=== PATIENT | female | born 1950 | race Caucasian/White ===

== ENCOUNTER 2019-01-09 08:07 | Emergency (ER) | payer MEDICARE, MEDICAID ==
[2019-01-09 08:24] VITALS: BP 152/68
--- NOTE | 2019-01-09 08:51 | UC ---
UC General HPI - HPI Summary HPI Summary: RN notes - reviewed has yeast under breast, went to PCP yesterday, rx otc lamicil. now has dark [place] spots/ rash on trunk Reviewed with pt, agree with rn notes. PCP is not in the office today. no fever / sob / cough / GI - History of Current Complaint Chief Complaint: UCRash Stated Complaint: RASH Time Seen by Provider: 01/09/19 08:51 Hx Obtained From: Patient Pain Intensity: 3 - Allergy/Home Medications Allergies/Adverse Reactions: Allergies Allergy/AdvReac Type Severity Reaction Status Date / Time ciprofloxacin [From Cipro] Allergy Intermediate Rash Verified 01/09/19 08:24 Home Medications: Home Medications Lisinopril 5 mg PO DAILY WITH MEAL 01/09/19 [History Confirmed 01/09/19] PMH/Surg Hx/FS Hx/Imm Hx Previously Healthy: Yes - Surgical History Surgical History: None - Family History Known Family History: Positive: Non-Contributory - Social History Alcohol Use: None Substance Use Type: None Smoking Status (MU): Never Smoked Tobacco Review of Systems All Other Systems Reviewed And Are Negative: Yes Constitutional: Positive: Negative Skin: Positive: Rash - see hpi Eyes: Positive: Negative ENT: Positive: Negative Respiratory: Positive: Negative Cardiovascular: Positive: Negative Gastrointestinal: Positive: Negative Genitourinary: Positive: Negative Motor: Positive: Negative Neurovascular: Positive: Negative Musculoskeletal: Positive: Negative Neurological: Positive: Negative Psychological: Positive: Negative Is Patient Immunocompromised?: No Physical Exam Triage Information Reviewed: Yes Appearance: Well-Appearing, Well-Nourished Vital Signs: Initial Vital Signs Temp 97.8 F 01/09/19 08:18 Pulse 68 01/09/19 08:18 Resp 18 01/09/19 08:18 BP 152/68 01/09/19 08:18 Pulse Ox 100 01/09/19 08:18 Vital Signs Reviewed: Yes Eye Exam: Normal ENT Exam: Normal Neck exam: Normal Respiratory Exam: Normal Cardiovascular Exam: Normal Abdominal Exam: Normal Abdomen Description: Positive: Nontender Musculoskeletal Exam: Normal - gait steady Neurological Exam: Normal - grossly nonfocal Psychological Exam: Normal - conversing easily Skin Exam: Other - nondiaphoretic. + dermatitis intrigenous regions, c/w with fungal component. Also several raised darker brown areas ranging from flat to raised, different size / shape, mostly circumferential, many are dry. Nonfluctuant, noncellulitic. Located over abd and back. Course/Dx - Course Course Of Treatment: Reviewed coa / tx plan. Dermatitis - avoid astringents (including desitin), switch from lamisil otc to lotrisone. Consider additional possible viral component. Will check blood work. F/u PCP on Saturday and Dermatology 2 weeks. - Diagnoses Provider Diagnosis: Dermatitis Discharge ED - Sign-Out/Discharge Documenting (check all that apply): Patient Departure All imaging exams completed and their final reports reviewed: No Studies - Discharge Plan Condition: Stable Disposition: HOME Prescriptions: Clotrimazole/Betamethasone* [Lotrisone Cream*] 1 applic TOPICAL TID 7 Days #1 tube Patient Education Materials: Dermatitis (ED) Referrals: Grant Vines MD [Primary Care Provider] - Additional Instructions: Call Dr. Vines on Saturday to arrange follow up for next week. Seek medical attention for worse or new problems in the meantime. Be sure to follow up with your compensation analyst as scheduled in 2 weeks. Hydrate. Avoid astringents (ex avoid hydrogen peroxide, rubbing alcohol, witch andres, desitin) Ok to shower, pat dry, mild white soap. - Billing Disposition and Condition Condition: STABLE Disposition: Home
[2019-01-09 13:25] LABS: ABS Eosinophils 0.1 10^3/ul (0-0.6); ABS Lymphocytes 1.2 10^3/ul (1.0-4.8); ABS Monocytes 0.6 10^3/ul (0-0.8); ABS Neutrophils 4.2 10^3/ul (1.5-7.7); Eosinophil % 1.2 %; Hematocrit 39 % (35-47); Hemoglobin 13.1 g/dL (12.0-16.0); Mean Corpuscular HGB Conc 34 g/dL (31-36); Mean Corpuscular Hemoglobin 33 pg (27-31); Mean Corpuscular Volume 97 fL (80-97); Mean Platelet Volume 7.5 fL (7.4-10.4); Platelet Count 263 10^3/uL (150-450); Red Blood Count 3.98 10^6 /uL (3.70-4.87); Red Cell Distribution Width 13 % (10-15); White Blood Count 6.2 10^3/uL (3.5-10.8)
[2019-01-09 13:29] LABS: Anion Gap 2 mmol/L (2-11); CO2 Carbon Dioxide 32 mmol/L (22-32); Calcium 9.2 mg/dL (8.6-10.3); Chloride 106 mmol/L (101-111); Potassium 4.5 mmol/L (3.5-5.0); Sodium 140 mmol/L (135-145)
[2019-01-09 13:35] LABS: BUN/Creatinine Ratio 39.7 (8-20); Blood Urea Nitrogen 25 mg/dL (6-24); C Reactive Protein < 1.00 mg/L (<8.01); EGFR African American 113.4 (>60); EGFR Non-African American 93.7 (>60); Glucose 79 mg/dL (70-100)
== END 2019-01-09 09:25 | disposition home or self-care (01) ==
LOC: UCEAST 08:07
DX: L30.9 Dermatitis, unspecified (principal)
CPT/HCPCS: 36415; 80048; 85025; 86140; 99212; G0463

== ENCOUNTER 2019-02-20 09:08 | Emergency (ER) | payer MEDICARE, MEDICAID ==
[2019-02-20 09:21] VITALS: BP 126/56
--- NOTE | 2019-02-20 10:29 | UC ---
Skin Complaint HPI - HPI Summary HPI Summary: PATIENT NOTICED WHAT SHE THOUGHT WAS A MOLE ON HER RIGHT POSTERIOR UPPER ARM 2 DAYS AGO. LAST NIGHT SAW THAT IT WAS A TICK. TICK WAS ENGORGED. SHE REMOVED IT. CAME IN TODAY FOR EVALUATION. - History of Current Complaint Chief Complaint: UCSkin Time Seen by Provider: 02/20/19 09:42 Stated Complaint: TICK BITE Hx Obtained From: Patient Skin Exposure Onset/Duration: Days Ago Timing: Constant Onset Severity: Mild Current Severity: Mild Pain Intensity: 0 Pain Scale Used: 0-10 Numeric Character: Pain, Redness Aggravating Factor(s): Touch Alleviating Factor(s): Nothing Associated Signs & Symptoms: Positive: Tenderness Related History: Insect Bite/Sting - Allergy/Home Medications Allergies/Adverse Reactions: Allergies Allergy/AdvReac Type Severity Reaction Status Date / Time ciprofloxacin [From Cipro] Allergy Intermediate Rash Verified 02/20/19 09:20 PMH/Surg Hx/FS Hx/Imm Hx Cardiovascular History: Hypertension - Surgical History Surgical History: None - Family History Known Family History: Positive: Non-Contributory - Social History Alcohol Use: None Substance Use Type: None Smoking Status (MU): Never Smoked Tobacco Review of Systems All Other Systems Reviewed And Are Negative: Yes Constitutional: Positive: Negative Skin: Positive: Other - TICK BITE Respiratory: Positive: Negative Cardiovascular: Positive: Negative Gastrointestinal: Positive: Negative Musculoskeletal: Positive: Negative Neurological: Positive: Negative Physical Exam Triage Information Reviewed: Yes Appearance: Well-Appearing, No Pain Distress, Well-Nourished Vital Signs: Initial Vital Signs Temp 97.8 F 02/20/19 09:16 Pulse 87 02/20/19 09:16 Resp 18 02/20/19 09:16 BP 126/56 02/20/19 09:16 Pulse Ox 100 02/20/19 09:16 Vital Signs Reviewed: Yes Eyes: Positive: Conjunctiva Clear ENT: Positive: Hearing grossly normal Neck: Positive: Supple Respiratory: Positive: No respiratory distress, No accessory muscle use Cardiovascular: Positive: Pulses Normal Abdomen Description: Positive: Soft Musculoskeletal: Positive: No Edema Neurological: Positive: Alert Psychological: Positive: Age Appropriate Behavior Skin: Positive: Other - 1CM AREA OF ERYTHEMA SURROUNDING TICK ATTACHMENT SITE RIGHT POSTERIOR UPPER ARM. MILDLY TENDER Course/Dx - Course Course Of Treatment: PATIENT MEETS CRITERIA FOR ONE-TIME PROPHYLACTIC DOSES OF DOXYCYCLINE. COUNSELED ON SIGNS AND SYMPTOMS OF LYME DISEASE TO BE VIGILANT FOR OVER THE NEXT FEW WEEKS. FOLLOW-UP IF NEEDED. - Diagnoses Provider Diagnosis: Tick bite of right upper arm Discharge ED - Sign-Out/Discharge Documenting (check all that apply): Patient Departure All imaging exams completed and their final reports reviewed: No Studies - Discharge Plan Condition: Stable Disposition: HOME Prescriptions: Doxycycline Monohydrate 2 cap PO ONCE #2 cap Patient Education Materials: Tick Bite (ED) Referrals: Grant Vines MD [Primary Care Provider] - Additional Instructions: You received a prescription for 200mg of doxycycline for prophylaxis against Lyme disease. The Infectious Disease Society of [place] (IDSA) does not generally recommend antimicrobial prophylaxis for prevention of Lyme disease after a recognized tick bite. However, in areas that are highly endemic for Lyme disease, a single dose of doxycycline may be offered to adult patients (200 mg) who are not and to children older than 8 years of age (4 mg/kg up to a maximum dose of 200 mg) when all of the following circumstances exist: CRITERIA FOR RECEIVING PROPHYLACTIC TREATMENT FOR LYME DISEASE 1) TICK ATTACHED FOR AT LEAST 36 HRS 2) TICK IS AN ADULT OR [place] DEER TICK 3) YOU LIVE IN AN AREA WHERE LYME DISEASE IS PREVALENT (i.e., [place], [place], [place], , [place] , [place], [place], [place], [place], [place], [place], [place], [place], [place]) 4) YOU HAVE NO CONTRAINDICATION TO THE MEDICATION (DOXYCYCLINE) 5) PROPHYLAXIS IS BEGUN WITHIN 72 HRS OF TICK REMOVAL BE VIGILANT OF YOUR SYMPTOMS AND DON'T HESITATE TO GET SEEN AGAIN IF YOU DEVELOP UNEXPLAINED FEVER, HEADACHE, JOINT PAIN, BODY ACHES, RASH OR ANY OTHER CONCERNING SYMPTOMS. Antibiotic treatment following a tick bite is not recommended as a means to prevent anaplasmosis, babesiosis, ehrlichiosis, or [place] spotted fever. There is no evidence this practice is effective, and it may simply delay onset of disease. Instead, persons who experience a tick bite should be alert for symptoms suggestive of tickborne illness and consult a physician if fever, rash, headache or other symptoms of concern develop. - Billing Disposition and Condition Condition: STABLE Disposition: Home
== END 2019-02-20 10:05 | disposition home or self-care (01) ==
LOC: UCEAST 09:08
DX: S40.861A Insect bite (nonvenomous) of right upper arm, initial encounter (principal); Z88.1 Allergy status to other antibiotic agents; W57.XXXA Bitten or stung by nonvenomous insect and other nonvenomous arthropods, initial encounter; Y92.9 Unspecified place or not applicable
CPT/HCPCS: 99211; G0463